=== PATIENT | male | born 1960 | race Caucasian/White ===

== ENCOUNTER 2020-09-08 18:41 | Emergency (ER) | payer BC ==
[~2020-09-08] VITALS: Ht 182.9 cm; Wt 82.2 kg
[2020-09-08 19:21] LABS: BASOPHILS % (AUTO) 1 % (0-1); EOSINOPHILS % (AUTO) 1 % (1-7); LYMPHOCYTES % (AUTO) 17 % (22-44); MEAN CORPUSCULAR HEMOGLOBIN 30.2 pg (27.5-34.5); MEAN CORPUSCULAR HGB CONC 34.5 g/dL (33.2-36.2); MEAN PLATELET VOLUME 7.6 fL (7.4-10.4); MONOCYTES % (AUTO) 8 % (2-9); NEUTROPHILS % (AUTO) 73 % (42-75); PLATELET COUNT 300 x10^3/uL (130-400); RED BLOOD COUNT 5.02 x10^6/uL (4.38-5.82); RED CELL DISTRIBUTION WIDTH 13.6 % (9.4-14.8)
[2020-09-08 19:31] LABS: ANION GAP 5 mmol/L (5-15); CHLORIDE 106 mmol/L (98-107)
[2020-09-08 19:37] LABS: CREATININE 1.26 mg/dL (0.7-1.3); TROPONIN I < 0.015 ng/mL (0.000-0.045)
--- NOTE | 2020-09-08 21:03 | NUR ---
PT TO ROOM FROM LOBBY
[2020-09-08] MEDS ORDERED: ONDANSETRON 2MG/ML, 2ML IVPush ONE (21:30)
[2020-09-08] MEDS ORDERED: SODIUM CHLORIDE 0.9% 1,000ML IVBOLUS ONE (21:30)
[2020-09-08] MEDS ORDERED: SODIUM CHLORIDE FLUSH 10ML SYR IVF ONE (21:30)
[2020-09-08] MEDS ORDERED: ONDANSETRON 2MG/ML, 2ML ONE (21:51)
[2020-09-08 22:04] VITALS: BP 124/71
== END 2020-09-08 22:32 | disposition home or self-care (01) ==
LOC: ED 19:30
DX: R42 Dizziness and giddiness (principal); R55 Syncope and collapse; R11.0 Nausea; R07.89 Other chest pain; R94.31 Abnormal electrocardiogram [ECG] [EKG]
CPT/HCPCS: 36415; 71045; 80048; 82040; 83880; 84484; 85025; 93005; 96374; 99285; J2405; J7030